=== PATIENT | female | born 1980 | race Caucasian/White ===

== ENCOUNTER 2018-01-27 04:27 | Day surgery (SDC) | payer OTHER ==
[2018-01-24 11:44] VITALS: BP 111/60
[2018-01-24 12:10] LABS: BASOPHIL # 0.1 10^3/uL (0.0-0.1); BASOPHIL % 0.4 % (0.0-0.2); EOSINOPHIL # 0.3 10^3/uL (0.0-0.2); EOSINOPHIL % 1.9 % (0.0-5.0); HEMOGLOBIN 13.9 g/dL (12.0-15.0); MEAN CELL HGB 27.9 pg (26-34); MEAN CELL HGB CONCENTRATION 33.1 g/dL (33-37); MEAN CORP VOLUME 84.2 fL (78-100); MEAN PLATELET VOLUME 9.8 fL (7.8-11.0); MONOCYTES # 1.1 10^3/uL (0.3-0.8); MONOCYTES % 6.4 % (5.0-12.0); NEUTROPHIL # 12.1 10^3/uL (1.8-7.7); NEUTROPHILS % 73.1 % (41.0-85.0); RED CELL DISTRIBUTION WIDTH 18.3 % (11.5-14.5); WHITE BLOOD CELL 16.5 10^3/uL (4.5-11.0)
[2018-01-24 12:30] LABS: CALCIUM 10.7 mg/dL (8.4-10.5); CARBON DIOXIDE 19.3 mmol/L (20.0-32)
--- NOTE | 2018-01-24 16:34 | PCM.EKG ---
[facility] Test Date: 2018-01-24 Test Time: 11:57:33 Pat Name: CHRISTI WOODS [facility]: [id number] Room: Gender: F Training Program Manager: KASH : 1980 Requested By: SABRINA PEERZ Order Number: [id number] Reading MD: Measurements Intervals [place] Rate: 104 P: 64 VA: 118 QRS: 66 QRSD: 88 T: 40 QT: 318 QTc: 418 Interpretive Statements Sinus tachycardia Otherwise normal ECG No previous ECG available for comparison Please click the below link to view image of tracing.
[~2018-01-27] VITALS: Ht 158.8 cm; Wt 77.6 kg
[2018-01-27] VITALS (7 sets, daily range): BP systolic 92–106; BP diastolic 55–70
[~2018-01-27 04:27] MED LIST: AMLO10TA2 PO; LISI40TA PO; POTA10TA17 PO
[2018-01-27] MEDS ORDERED: NS 100ML 100 ML IV ONE ×2 (05:14→10:46)
[2018-01-27] MEDS ORDERED: LACTATED RINGERS 1,000 ML ONE ×2 (05:14→09:15)
[2018-01-27] MEDS ORDERED: LASIX ONE (05:14)
[2018-01-27] MEDS ORDERED: ROCEPHIN ONE (05:15)
[2018-01-27] MEDS ORDERED: LASIX IV ONE ×2 (06:00→08:00)
[2018-01-27] MEDS ORDERED: LACTATED RINGERS 1,000 ML IV SCH ×2 (06:00→10:30)
[2018-01-27] MEDS ORDERED: LACTATED RINGERS 1,000 ML IV ONE ×2 (06:00→07:30)
[2018-01-27] MEDS ORDERED: DECADRON ONE (06:36)
[2018-01-27] MEDS ORDERED: VERSED ONE (06:36)
[2018-01-27] MEDS ORDERED: ZOFRAN ONE (06:36)
[2018-01-27] MEDS ORDERED: DIPRIVAN IV ONE (06:37)
[2018-01-27] MEDS ORDERED: SUBLIMAZE ONE ×2 (06:37→10:28)
[2018-01-27 07:31] LABS: BASOPHIL # 0.1 10^3/uL (0.0-0.1); BASOPHIL % 0.5 % (0.0-0.2); EOSINOPHIL # 0.4 10^3/uL (0.0-0.2); EOSINOPHIL % 2.6 % (0.0-5.0); HEMOGLOBIN 13.5 g/dL (12.0-15.0); LYMPHOCYTES # 3.7 10^3/uL (1.0-4.8); LYMPHOCYTES % 23.4 % (24.0-44.0); MEAN CELL HGB 28.1 pg (26-34); MEAN CELL HGB CONCENTRATION 33.3 g/dL (33-37); MEAN CORP VOLUME 84.4 fL (78-100); MEAN PLATELET VOLUME 9.5 fL (7.8-11.0); MONOCYTES # 1.2 10^3/uL (0.3-0.8); MONOCYTES % 7.3 % (5.0-12.0); NEUTROPHIL # 10.5 10^3/uL (1.8-7.7); NEUTROPHILS % 65.9 % (41.0-85.0); RED CELL DISTRIBUTION WIDTH 18.2 % (11.5-14.5); WHITE BLOOD CELL 15.9 10^3/uL (4.5-11.0)
[2018-01-27] MEDS ORDERED: ACET-685 PO (10:22)
[2018-01-27] MEDS ORDERED: TAMS0.4C2 PO (10:22)
[2018-01-27] MEDS ORDERED: NORCO 7.5MG PO PRN (10:30)
[2018-01-27] MEDS ORDERED: LASIX IV SCH (10:30)
[2018-01-27] MEDS ORDERED: SUBLIMAZE IV ONE (11:00)
[2018-01-27] MEDS ORDERED: TYLENOL #3 PO ONE ×2 (11:00→11:01)
--- NOTE | 2018-01-27 12:39 | OPH ---
DATE OF SURGERY: 01/27/2018 PREOPERATIVE DIAGNOSIS: Left renal calculi. FINAL DIAGNOSIS: Left renal calculi. PROCEDURE: Left ESWL. DESCRIPTION OF PROCEDURE: The patient was brought to the lithotripsy room, was put in supine position on the lithotripsy table. A left preop renal ultrasound revealed multiple calculi in the left kidney, 2 in the lower pole measuring 1 cm and 8.8 mm in diameter respectively, one stone in the middle pole measuring 1 cm in diameter and another one in the upper mid pole measuring 1.12 cm in diameter. There was no evidence of hydronephrosis, no cysts or masses noted. After the patient was given an LMA general anesthesia and after localization of the stones with the use of an ultrasound and a C-arm fluoroscopy, a left ESWL was then performed using a Dornier Compact Delta II Lithotripter. A total of 2500 shockwaves were delivered to the stones in different locations in the left kidney under ultrasound guidance. After fragmentation of the stone as noted in the ultrasound, the procedure was terminated. The patient was then awakened, was transferred to the recovery room in stable condition. Paul Carranza MD DR: SPENCER/bashir JOB# [id number]
== END 2018-01-27 11:39 | disposition home or self-care (01) ==
LOC: SDC 04:27
PROVIDERS: ATTEND Urology
DX: N20.0 Calculus of kidney (principal); I10 Essential (primary) hypertension; E66.9 Obesity, unspecified; F17.210 Nicotine dependence, cigarettes, uncomplicated; Z79.899 Other long term (current) drug therapy; Z98.890 Other specified postprocedural states; Z68.30 Body mass index [BMI] 30.0-30.9, adult; Z93.6 Other artificial openings of urinary tract status
CPT/HCPCS: 36415 ×2; 50590; 80053; 84703; 85025 ×2; 85610; 85730; 93005; J0696; J1100; J2250; J2405; J3010 ×2; J3490 ×2; J7050 ×2; J7120 ×2; J1940

== ENCOUNTER 2018-02-10 02:59 | Day surgery (SDC) | payer OTHER ==
[2018-02-10] VITALS (7 sets, daily range): BP systolic 98–121; BP diastolic 58–79
[~2018-02-10] VITALS: Ht 158.8 cm; Wt 77.6 kg
[~2018-02-10 02:59] MED LIST changes: +ACET-685 PO; +TAMS0.4C2 PO
[2018-02-10] MEDS ORDERED: LACTATED RINGERS 1,000 ML ONE (05:33)
[2018-02-10] MEDS ORDERED: LASIX ONE (05:42)
[2018-02-10] MEDS ORDERED: LACTATED RINGERS 1,000 ML IV SCH ×2 (06:00→11:00)
[2018-02-10] MEDS ORDERED: DECADRON ONE (06:31)
[2018-02-10] MEDS ORDERED: DIPRIVAN IV ONE (06:31)
[2018-02-10] MEDS ORDERED: SUBLIMAZE ONE (06:31)
[2018-02-10] MEDS ORDERED: VERSED ONE (06:31)
[2018-02-10] MEDS ORDERED: ZOFRAN ONE (06:31)
[2018-02-10] MEDS ORDERED: TORADOL ONE (06:31)
[2018-02-10] MEDS ORDERED: LIDOCAINE 2% VIAL ONE (06:38)
[2018-02-10] MEDS ORDERED: SUBLIMAZE IV PRN (07:30)
[2018-02-10] MEDS ORDERED: ZOFRAN IV PRN (07:30)
[2018-02-10 08:51] LABS: BASOPHIL # 0.1 10^3/uL (0.0-0.1); BASOPHIL % 0.5 % (0.0-0.2); EOSINOPHIL # 0.4 10^3/uL (0.0-0.2); EOSINOPHIL % 2.4 % (0.0-5.0); HEMOGLOBIN 12.3 g/dL (12.0-15.0); LYMPHOCYTES # 3.8 10^3/uL (1.0-4.8); LYMPHOCYTES % 21.4 % (24.0-44.0); MEAN CELL HGB CONCENTRATION 32.5 g/dL (33-37); MEAN CORP VOLUME 85.9 fL (78-100); MEAN PLATELET VOLUME 9.2 fL (7.8-11.0); MONOCYTES % 5.6 % (5.0-12.0); NEUTROPHIL # 12.2 10^3/uL (1.8-7.7); NEUTROPHILS % 69.8 % (41.0-85.0); WHITE BLOOD CELL 17.5 10^3/uL (4.5-11.0)
[2018-02-10] MEDS ORDERED: LASIX IV ONE (10:00)
[2018-02-10] MEDS ORDERED: ACET-685 PO (10:50)
[2018-02-10] MEDS ORDERED: NORCO 7.5MG PO PRN (11:00)
[2018-02-10] MEDS ORDERED: LASIX IV SCH (11:00)
[2018-02-10] MEDS ORDERED: NORCO 7.5MG PO ONE (11:13)
--- NOTE | 2018-02-10 12:02 | OPH ---
DATE OF SURGERY: 02/10/2018 PREOPERATIVE DIAGNOSIS: Right renal calculi. FINAL DIAGNOSIS: Right renal calculi. PROCEDURES: Right ESWL. DESCRIPTION OF PROCEDURE: The patient was brought to the lithotripsy room, was put in supine position on the lithotripsy table. A right preop renal ultrasound revealed multiple calculi in the right kidney. The patient has a history of medullary sponge kidney. After the patient was given a LMA general anesthesia and after localization of the stone with the use of a fluoroscopy and an ultrasound, a right ESWL was then performed using a Dornier Compact Delta II Lithotripter. A total of 2500 shockwaves were delivered to the stones in different locations in the right kidney under ultrasound guidance. After fragmentation of the stone as noted in the ultrasound, the procedure was terminated. The patient was awakened, was transferred to the recovery room in stable condition. Paul Carranza MD DR: SPECNER/bashir JOB# [id number]
[2018-02-10] MEDS ORDERED: EPHEDRINE SULFATE ONE (12:49)
== END 2018-02-10 11:32 | disposition home or self-care (01) | DRG 694 ==
LOC: SDC 02:59
PROVIDERS: ATTEND Urology
DX: N20.0 Calculus of kidney (principal); K21.9 Gastro-esophageal reflux disease without esophagitis; E66.9 Obesity, unspecified; I10 Essential (primary) hypertension; Z98.890 Other specified postprocedural states; Z68.30 Body mass index [BMI] 30.0-30.9, adult; F17.210 Nicotine dependence, cigarettes, uncomplicated; Z93.6 Other artificial openings of urinary tract status
CPT/HCPCS: 36415; 50590; 81025; 85025; J1100; J1885; J2001; J2250; J2405; J3010; J3490 ×2; J7120; J1940

== ENCOUNTER 2018-03-10 03:25 | Day surgery (SDC) | payer OTHER ==
[2018-03-07 10:35] VITALS: BP 126/79
[2018-03-07 11:11] LABS: BASOPHIL % 0.3 % (0.0-0.2); EOSINOPHIL # 0.3 10^3/uL (0.0-0.2); EOSINOPHIL % 2.1 % (0.0-5.0); HEMOGLOBIN 13.2 g/dL (12.0-15.0); LYMPHOCYTES % 19.7 % (24.0-44.0); MEAN CELL HGB 28.1 pg (26-34); MEAN CELL HGB CONCENTRATION 32.8 g/dL (33-37); MEAN CORP VOLUME 85.7 fL (78-100); MEAN PLATELET VOLUME 9.1 fL (7.8-11.0); MONOCYTES # 1.2 10^3/uL (0.3-0.8); MONOCYTES % 8.3 % (5.0-12.0); NEUTROPHIL # 10.4 10^3/uL (1.8-7.7); NEUTROPHILS % 69.1 % (41.0-85.0)
[2018-03-07 11:21] LABS: CALCIUM 9.7 mg/dL (8.4-10.5); CARBON DIOXIDE 24.2 mmol/L (20.0-32)
[~2018-03-10] VITALS: Ht 158.8 cm; Wt 79.8 kg
[2018-03-10] MEDS ORDERED: LASIX ONE (05:12)
[2018-03-10] MEDS ORDERED: LACTATED RINGERS 1,000 ML ONE ×2 (05:12→10:12)
[2018-03-10] MEDS ORDERED: ZOFRAN ONE (06:42)
[2018-03-10] MEDS ORDERED: DECADRON ONE (06:42)
[2018-03-10] MEDS ORDERED: VERSED ONE (06:42)
[2018-03-10] MEDS ORDERED: SUBLIMAZE ONE (06:43)
[2018-03-10] MEDS ORDERED: DIPRIVAN IV ONE (06:43)
[2018-03-10] MEDS ORDERED: LACTATED RINGERS 1,000 ML IV SCH ×2 (07:00→10:00)
[2018-03-10] MEDS ORDERED: SUBLIMAZE IV PRN (07:30)
[2018-03-10] MEDS ORDERED: BENADRYL IV PRN (07:30)
[2018-03-10] MEDS ORDERED: PHENERGAN IV PRN (07:30)
[2018-03-10] MEDS ORDERED: ZOFRAN IV PRN (07:30)
[2018-03-10] MEDS ORDERED: LASIX IV ONE (08:00)
[2018-03-10 08:38] VITALS: BP 104/68
[2018-03-10 09:55] VITALS: BP 115/77
[2018-03-10] MEDS ORDERED: TRAM50TA PO (09:55)
[2018-03-10] MEDS ORDERED: NORCO 7.5MG PO PRN (10:00)
[2018-03-10] MEDS ORDERED: LASIX IV SCH (10:00)
[2018-03-10 10:09] VITALS: BP 120/73
[2018-03-10 10:10] VITALS: BP 118/72
[2018-03-10 10:25] VITALS: BP 105/74
[2018-03-10 10:31] VITALS: BP 116/74
--- NOTE | 2018-03-10 11:24 | OPH ---
DATE OF SURGERY: PREOPERATIVE DIAGNOSIS: Left renal calculi. FINAL DIAGNOSIS: Left renal calculi. PROCEDURE: Left ESWL. DESCRIPTION OF PROCEDURE: The patient was brought to the lithotripsy room, was put in supine position on lithotripsy table. A left preop renal ultrasound was initially performed, which revealed multiple calculi in the left kidney. No evidence of hydronephrosis, no sign of obstruction or cysts or masses noted. After the patient was given an LMA general anesthesia and after localization of the stone with the use of an ultrasound and C-arm fluoroscopy, a left ESWL was then performed using a Dornier Compact Delta II Lithotripter. A total of 2500 shock waves were delivered into different locations in the left kidney under ultrasound guidance. After fragmentation of the stone as noted in the ultrasound the procedure was terminated. The patient was then awakened, was transferred to the recovery room in stable condition. Paul Carranza MD DR: SPENCER/bashir JOB# [id number] CANDICE
== END 2018-03-10 10:33 | disposition home or self-care (01) | DRG 694 ==
LOC: SDC 03:25
PROVIDERS: ATTEND Urology
DX: N20.0 Calculus of kidney (principal); I12.9 Hypertensive chronic kidney disease with stage 1 through stage 4 chronic kidney disease, or unspecified chronic kidney disease; N18.1 Chronic kidney disease, stage 1; K21.9 Gastro-esophageal reflux disease without esophagitis; E66.9 Obesity, unspecified; Z98.890 Other specified postprocedural states; Z88.8 Allergy status to other drugs, medicaments and biological substances; F17.210 Nicotine dependence, cigarettes, uncomplicated; Z79.899 Other long term (current) drug therapy; Z93.6 Other artificial openings of urinary tract status; Z68.31 Body mass index [BMI] 31.0-31.9, adult
CPT/HCPCS: 36415; 50590; 80048; 81025; 84703; 85025; 85610; 85730; J1100; J2250; J2405; J3010; J3490; J7120 ×2; J1940